=== PATIENT | female | born 1990 | race Caucasian/White ===

== ENCOUNTER → 2019-11-30 15:31 | Outpatient (CLI) | payer OTHER, SELFPAY ==
--- NOTE | ~2019-11-30 | US_ITS ---
EXAMINATION: US OB <= 14 weeks fetus DATE: 11/30/2019 15:54 INDICATION: First trimester dating TECHNIQUE: Real-time pelvic transabdominal and transvaginal ultrasound was performed. COMPARISON: None. FINDINGS: The uterus measures 13.1 x 5.7 x 7.4 cm. There is an intrauterine gestational sac. There a re two small subchronic hemorrhages which measure 1.5 x 0.7 x 1.7 cm and 1.0 x 0.8 x 0.7 cm. A yolk s ac is identified. heart motion is identified measuring 164 beats per minute (bpm) by M-mode Dop pler. The crown rump length measures 2 cm , which correlates with an estimated gestational age of 8 weeks and 4 day(s) (+/-) 5 day(s). The left ovary is not visualized however no left adnexal abnormality is seen. The right ovary measure s 2.5 x 1.7 x 2 cm. There is no free fluid in the pelvis. IMPRESSION: 1. Live intrauterine with an estimated gestational age of 8 weeks and 4 day(s) (+/-) 5 day( s) and an estimated delivery date of 07/07/2020. 2. Two small subchronic hemorrhages. Reviewed, dictated and finalized at location A. [employer]ICER IMPRESSION: 1. Live intrauterine with an estimated gestational age of 8 weeks and 4 day(s) (+/-) 5 day(s) and an estimated delivery date of 07/07/2020. 2. Two small subchronic hemorrhages.
== END ==
PROVIDERS: Visit Provider Nurse Practitioner
DX: O46.90 Antepartum hemorrhage, unspecified, unspecified trimester (principal); Z3A.00 Weeks of gestation of pregnancy not specified
CPT/HCPCS: 76801

== ENCOUNTER → 2019-12-29 09:09 | Outpatient (CLI) | payer OTHER, SELFPAY ==
--- NOTE | ~2019-12-29 | US_ITS ---
EXAMINATION: US OB limited DATE: 12/29/2019 09:29 INDICATION: Subchorionic hematoma follow-up, first trimester TECHNIQUE: Real-time ultrasound of the pelvis was performed. The interpreting radiologist was not pre sent for the study. COMPARISON: None. FINDINGS: There is a single living fetus in vertex presentation. There is an approximately 2.0 x 1.0 x 1.1 cm hypoechoic area adjacent to the left aspect of the gestational sac. No persistent hypoechoic finding is seen to the right of the gestational sac. cardiac activity and movement are n oted. heart rate is 146 beats per minute (bpm). The amniotic fluid index is subjectively normal . IMPRESSION: 1. Subchorionic hematoma adjacent to the left of the gestational sac measuring up to 2.0 cm. Reviewed, dictated and finalized at location A.
== END ==
PROVIDERS: PCP Family Medicine; Visit Provider Obstetrics & Gynecology Gynecology
DX: O36.8910 Maternal care for other specified fetal problems, first trimester, not applicable or unspecified (principal); Z3A.00 Weeks of gestation of pregnancy not specified
CPT/HCPCS: 76815

== ENCOUNTER 2020-02-07 14:59 | Outpatient (CLI) | payer OTHER, SELFPAY ==
--- NOTE | ~2020-02-07 | US_ITS ---
EXAMINATION: US OB /maternal detail DATE: 02/07/2020 16:17 INDICATION: Follow-up subchorionic hematoma and assess anatomy during second trimester pregnanc y. TECHNIQUE: Multiple obstetric sonographic images performed. FINDINGS: There is a single living fetus in variable presentation. The placenta is anterior with caudal margin 3.4 cm from the internal cervical os. Normal amniotic fluid volume. heart rate of 142 beats p er minute. The following anatomy was identified as normal: Normal situs solitus Ventricles, choroid plexus, falx and cava septum pellucidum Cerebellum and cisterna magna Nuchal fold Upper lip Spine Heart Diaphragm Stomach Kidneys Bladder 3 vessel cord and cord insertion Bilateral upper and lower extremities including hands and feet The following biometric data were obtained: BPD: 4.2 cm -> 18 weeks 5 days Head circumference: 16.7 cm -> 19 weeks 3 days Abdominal circumference: 13.6 cm -> 19 weeks 1 days Femur length: 2.7 cm -> 18 weeks 1 days These measurements are concordant. Head circumference to abdominal circumference ratio: 1.23 (normal range 1.09-1.26). Estimated weight: 254 g (+/-) 38 g. or 9 oz. (+/-) 1 oz. IMPRESSION: 1. Single living fetus with variable presentation with heart rate of 142 bpm. 2. Gestational age by ultrasound of 18 weeks 6 day(s) (+/-) 1 week 2 day(s) with ultrasound estimat ed date of delivery (LULÚ) of 07/04/2020. Estimated weight is 54th percentile by Hadlock criteria when 07/04/2020 is used as the LULÚ. Please correlate with clinical information or earlier ultrasounds for most accurate LULÚ. 3. Normal survey. Reviewed, dictated and finalized at location A. IMPRESSION: 1. Single living fetus with variable presentation with heart rate of 142 bpm. 2. Gestational age by ultrasound of 18 weeks 6 day(s) (+/-) 1 week 2 day(s) w ith ultrasound estimated date of delivery (LULÚ) of 07/04/2020. Estimated w eight is 54th percentile by Hadlock criteria when 07/04/2020 is used as the LULÚ. Please correlate with clinical information or earlier ultrasounds for most acc urate LULÚ. 3. Normal survey.
== END 2020-02-07 15:00 | disposition home or self-care (01) ==
PROVIDERS: Visit Provider Obstetrics & Gynecology Gynecology
DX: Z36.89 Encounter for other specified antenatal screening (principal); O36.8911 Maternal care for other specified fetal problems, first trimester, fetus 1; Z3A.18 18 weeks gestation of pregnancy
CPT/HCPCS: 76805

== ENCOUNTER 2020-03-11 15:19 | Outpatient (CLI) | payer OTHER, SELFPAY ==
[2020-03-11 15:45] VITALS: BP 111/65; PULSE 73
[2020-03-11 16:00] VITALS: BP 116/59; PULSE 74
[2020-03-11 16:15] VITALS: BP 106/52; PULSE 81
[2020-03-11 16:23] VITALS: BP 106/52; PULSE 85
--- NOTE | 2020-03-11 16:27 | PC.NURSE ---
Spoke with Dr. Larsen, patient to be dischraged to home. ROM plus negative.
== END 2020-03-11 16:25 | disposition home or self-care (01) ==
LOC: ANHOBOP 16:13 → ANHOBPP 16:14
PROVIDERS: Visit Provider Obstetrics & Gynecology Gynecology
DX: O42.90 Premature rupture of membranes, unspecified as to length of time between rupture and onset of labor, unspecified weeks of gestation (principal); Z3A.00 Weeks of gestation of pregnancy not specified
CPT/HCPCS: 59025; 84112; 99199

== ENCOUNTER 2020-04-14 16:10 | Outpatient (RCR) | payer OTHER, SELFPAY ==
[2020-04-16] MEDS: RHO(D) IMMUNE GLOBULIN 300 MCG SYRINGE IM (16:48)
== END 2020-07-13 23:59 | disposition home or self-care (01) ==
LOC: ANHLAB 16:10
PROVIDERS: Visit Provider Obstetrics & Gynecology Gynecology
DX: Z29.13 Encounter for prophylactic Rho(D) immune globulin (principal); O36.0990 Maternal care for other rhesus isoimmunization, unspecified trimester, not applicable or unspecified; Z3A.00 Weeks of gestation of pregnancy not specified; Z67.41 Type O blood, Rh negative
CPT/HCPCS: 36415; 85461; 90384; J2790

== ENCOUNTER 2020-05-30 16:36 | Outpatient (RCR) | payer OTHER, SELFPAY ==
--- NOTE | ~2020-05-30 | US_ITS ---
EXAMINATION: US OB BPP wo non-stress EXAM DATE: 05/30/2020 17:35 INDICATION: Nonreactive stress test. 3rd trimester. TECHNIQUE: Pelvic obstetrical transabdominal sonogram was performed by a technologist. There are mu ltiple grayscale and Doppler images available for interpretation. FINDINGS: There is a single fetus identified in vertex presentation with a heart rate of 134 beats pe r minute. The placenta is located in the anterior position. There is no sonographic evidence of retr oplacental hemorrhage identified. There is subjectively expected amount of amniotic fluid. Cervical canal length is 3.6 cm without funneling. BIOPHYSICAL PROFILE (performed by the technologist) breathing (30 sec sustained breathing in 30 minutes): 2 out of 2 movement (3 gross body movements in 30 minutes): 2 out of 2 tone (one episode of ethpekk-asehejpqz-tsacnht limb movement): 2 out of 2 Amniotic fluid pocket (2 cm): 2 out of 2 Total score: 8 out of 8 IMPRESSION: 1. Single fetus with heart rate of 137 bpm. 2. Normal biophysical profile score of 8 out of 8. Reviewed, dictated and finalized at location A.
[2020-05-30 17:43] VITALS: BP 118/71; PULSE 65
== END 2020-07-15 08:07 | disposition home or self-care (01) ==
LOC: ANHOBOP 16:36
PROVIDERS: PCP Family Medicine; Visit Provider Obstetrics & Gynecology Gynecology
DX: O24.419 Gestational diabetes mellitus in pregnancy, unspecified control (principal); Z3A.34 34 weeks gestation of pregnancy
CPT/HCPCS: 59025; 76819

== ENCOUNTER 2020-07-02 09:02 | Inpatient (IN) | payer OTHER, SELFPAY ==
[2020-07-02] VITALS (50 sets, daily range): BP systolic 68–112; BP diastolic 47–79; PULSE 51–135; RESP 16–18; TEMP 36.6–37.1; O2SAT 98–100
[2020-07-02 09:32] LABS: Basophils Percent Auto 0.1 % (0.2-1.2); Eosinophils Percent Auto 0.4 % (0-4.4); Hematocrit 41.2 % (37.0-47.0); Hemoglobin 14.6 g/dL (12.0-15.0); Immature Granulocyte Absolute 0.02 K/mm3 (0.00-0.031); Immature Granulocyte Percent A 0.2 % (0-0.5); Lymphocytes Absolute Auto 1.67 K/mm3 (0.9-3.2); Lymphocytes Percent Auto 18.7 % (18.3-44.2); Mean Corpuscular HGB Conc 35.4 g/dl (32-36); Mean Corpuscular Hemoglobin 33.6 pg (26-34); Mean Corpuscular Volume 94.9 fl (80-100); Mean Platelet Volume 11.8 fl (7.4-10.4); Monocytes Absolute Auto 0.5 K/mm3 (0.1-0.6); Monocytes Percent Auto 5.5 % (2.6-8.5); Neutrophils Absolute Auto 6.7 K/mm3 (1.3-6.7); Neutrophils Percent Auto 75.1 % (45.5-73.1); Platelet Count Result 166 k/mm3 (150-375); Red Blood Count 4.34 M/mm3 (4.2-5.4); Red Cell Distribution Width 12.6 % (11.5-14.5); White Blood Count 8.9 K/mm3 (4.5-10.0)
[2020-07-02] MEDS: ONDANSETRON INJ 4 MG/2 ML VIAL IV PUSH (09:34)
[2020-07-02] MEDS: LACTATED RINGERS 1,000 ML 125 ML IV CONT (09:35)
[2020-07-02] MEDS: OXYTOCIN 30 UNITS/NS 500 ML 30 UNITS/500 ML BAG IV CONT (09:35)
--- NOTE | 2020-07-02 09:41 | LDADM ---
This patient, Ciera Reyes, was admitted to Labor/Delivery/Recovery 105 on 07/02/20 at 09:02. Plans for labor, pain management and were discussed with patient. Patient/family oriented to hospital policies and general routines including ID bracelet, bed and alarms, visiting hours, pain management, procedures, bathroom and other care routines, personal items, smoking policy, room service/diet and guest tray routines, infant security routines, and visiting hours. Patient/Family are encouraged to report perceived risks to care and to ask questions if they do not understand what they are told or what they should do. See OBIX for further documentation.
[2020-07-02 11:24] LABS: Glucose Point of Care 81 (65-105)
--- NOTE | 2020-07-02 11:49 | WPDANESEPP ---
Anes - Eval Pre Procedure Procedure: Labor Epidural Date/Time: 07/02/20 11:49 Surgeon: Libby Preop Diagnosis: Labor Pain Pre Op Diagnosis: IOL Patient Data Age: 30 Gender: F Height: Weight: Last Vital Signs Temp 36.8 C 07/02/20 11:30 Pulse 93 07/02/20 11:47 BP 68/51 L 07/02/20 11:47 Pulse Ox 98 07/02/20 11:47 Allergies Allergy/AdvReac Type Severity Reaction Status Date / Time No Known Allergies Allergy Unverified 10/27/17 12:28 Home Medications Medication Instructions Recorded Confirmed Type PNV cmb#95-ferrous fumarate-FA 1 tablet PO DAILY 06/11/20 07/02/20 History [] aspirin 81 mg PO DAILY 06/11/20 07/02/20 History ergocalciferol (vitamin D2) See Rx Instructions .ROUTE .COMPLEX 06/11/20 07/02/20 History [Vitamin D2] insulin NPH isoph U-100 human 12 unit SUBCUT HS 06/11/20 07/02/20 History [Humulin N NPH U-100 Insulin] Laboratory Tests 07/02/20 07/02/20 07/02/20 09:18 09:18 09:18 WBC 8.9 K/mm3 K/mm3 (4.5-10.0) RBC 4.34 M/mm3 M/mm3 (4.2-5.4) Hgb 14.6 g/dL g/dL (12.0-15.0) Hct 41.2 % % (37.0-47.0) MCV 94.9 fl fl (80-100) MCH 33.6 pg pg (26-34) MCHC 35.4 g/dl g/dl (32-36) RDW 12.6 % % (11.5-14.5) Plt Count 166 k/mm3 k/mm3 (150-375) MPV 11.8 fl H fl (7.4-10.4) Immature Gran % (Auto) 0.2 % % (0-0.5) Neut % (Auto) 75.1 % H % (45.5-73.1) Lymph % (Auto) 18.7 % % (18.3-44.2) [place] % (Auto) 5.5 % % (2.6-8.5) Eos % (Auto) 0.4 % % (0-4.4) Baso % (Auto) 0.1 % L % (0.2-1.2) Lymph # (Auto) 1.67 K/mm3 K/mm3 (0.9-3.2) [place] # (Auto) 0.5 K/mm3 K/mm3 (0.1-0.6) Eos # (Auto) 0.0 K/mm3 K/mm3 (0-0.3) Baso # (Auto) 0.0 K/mm3 K/mm3 (0.0-0.1) Abs Immat Gran (auto) 0.02 K/mm3 K/mm3 (0.00-0.031) Absolute Neuts (auto) 6.7 K/mm3 K/mm3 (1.3-6.7) Absolute Nucleated RBC 0.0 K/mm3 K/mm3 (0.0-0.012) Nucleated RBC % 0.0 % % (0.0-0.2) POC Capillary Glucose RPR Pending Blood Type O Negative Antibody Screen Negative 07/02/20 09:38 WBC RBC Hgb Hct MCV MCH MCHC RDW Plt Count MPV Immature Gran % (Auto) Neut % (Auto) Lymph % (Auto) [place] % (Auto) Eos % (Auto) Baso % (Auto) Lymph # (Auto) [place] # (Auto) Eos # (Auto) Baso # (Auto) Abs Immat Gran (auto) Absolute Neuts (auto) Absolute Nucleated RBC Nucleated RBC % POC Capillary Glucose 81 mg/dl mg/dl (65-105) RPR Blood Type Antibody Screen : gestational age (07/09/20) Patient hx anesthesia problems: none Family hx anesthesia problems: none [facility] Family History Family History Mother Heart disease Social History Social History Smoking status: Never smoker Substance use: never Gender identity (if verbalized by the patient): Female Spiritual care concerns: No Exam Day of Procedure 07/02/20 11:49 Patient weight: normal Heart: regular rate and rhythm Lungs: normal air movement Airway: Mallampati scale class II Neurological: alert and oriented
--- NOTE | 2020-07-02 12:12 | WPDOBADMIT ---
Obstetrics - Admit Note Admission Note: AROm meconium /-2 vertex record reviewed. No pertinent additions to the history and/or any subsequent changes in the physical findings that are not consistent with the expected course of the were found. Additions to the history and/or subsequent changes in the physical findings follow. None.
[2020-07-02 13:30] LABS: Glucose Point of Care 60 (65-105)
--- NOTE | 2020-07-02 14:13 | PM.OBPRVD ---
OB - Delivery Note Procedure Delivery date: 07/02/20 Procedure: events: Gestational Diabetes (GDMA1) and Labor Induction Intrapartal events: None Induction method: per pitocin protocol Delivery monitor: external FHT and external uterine Route of delivery: Laceration description: Vaginal - 1st Degree Delivery repair: vicryl (3-0 vicryl ) Specimen: No Estimated blood loss (mL): 100 Anesthesia type: Epidural Disposition: floor Baby Date of : 07/02/20 Weeks of gestation at delivery: 39 Infant gender: Male presentation: vertex Placenta delivery description: Spontaneous cord vessel description: 3 Vessels score one minute: 9 score five minutes: 9
--- NOTE | 2020-07-02 14:15 | PM.OBDSVD ---
DS: Admitting Diagnosis Admitting Diagnosis Admitting Diagnosis: IOL GDMA2 39 wks DS: Discharge Diagnosis Discharge Diagnosis (1) 39 weeks gestation of : Code(s): Z3A.39 - 39 weeks gestation of Status: Acute (2) (normal spontaneous vaginal delivery): Code(s): O80 - Encounter for full-term uncomplicated delivery Status: Acute (3) GDM, class A2: Code(s): O24.419 - Gestational diabetes mellitus in , unspecified control Status: Acute OB - DS: Summary OB Procedures : NST and Ultrasound OB Procedures Intrapartum: Spontaneous Vag Delivery OB Procedures: : None Peripartum Data Delivery Method: Natural Vaginal Laceration description: Vaginal - 1st Degree complications: none Status at Discharge Functional status at discharge: independent ambulation Overall status at discharge: patient is progressing back to baseline Time Spent with Patient Time attestation: Total time spent providing and/or coordinating discharge services: DS: Data Data Completed and Pending Labs on day of discharge: Labs from last 24 hours 07/02/20 07/02/20 07/02/20 13:28 09:38 09:18 WBC RBC Hgb Hct MCV MCH MCHC RDW Plt Count MPV Immature Gran % (Auto) Neut % (Auto) Lymph % (Auto) Yell % (Auto) Eos % (Auto) Baso % (Auto) Lymph # (Auto) Yell # (Auto) Eos # (Auto) Baso # (Auto) Abs Immat Gran (auto) Absolute Neuts (auto) Absolute Nucleated RBC Nucleated RBC % POC Capillary Glucose 60 L 81 RPR Blood Type O Negative Antibody Screen Negative 07/02/20 07/02/20 09:18 09:18 WBC 8.9 RBC 4.34 Hgb 14.6 Hct 41.2 MCV 94.9 MCH 33.6 MCHC 35.4 RDW 12.6 Plt Count 166 MPV 11.8 H Immature Gran % (Auto) 0.2 Neut % (Auto) 75.1 H Lymph % (Auto) 18.7 Yell % (Auto) 5.5 Eos % (Auto) 0.4 Baso % (Auto) 0.1 L Lymph # (Auto) 1.67 Yell # (Auto) 0.5 Eos # (Auto) 0.0 Baso # (Auto) 0.0 Abs Immat Gran (auto) 0.02 Absolute Neuts (auto) 6.7 Absolute Nucleated RBC 0.0 Nucleated RBC % 0.0 POC Capillary Glucose RPR Pending Blood Type Antibody Screen Discharge Plan Discharge Attending physician on discharge: Serenity Souza Discharging Clinician: Serenity Souza Anticipated Discharge Date/Time: 07/04/20 14:17 Patient Disposition: Home, Self-Care Activity: pelvic rest Diet: regular Discharge Instructions: Education: Mom and Baby Guide and Preeclampsia Handout Given to: Mother Follow-Up: Call your delivering provider's office for an appointment to be seen in: 6 Weeks Mom and baby should come to the [facility] for the follow-up appointment. Appointment Date/Time: July 04, 2020 at 8:00 am What to expect at your follow-up visit: Physical Assessment Call [phone] if you are unable to keep your appointment time. BREAST CARE: * Wear a snug supportive bra. * For engorgement discomfort: Breast Feeding: * Apply warm moist washcloths * Express milk as needed to relieve engorgement * Wear loose clothing * For sore nipples: * Identify correct latch-on * Apply warm moist washcloths before and after nursing * Air dry nipples after nursing * May apply Lansinoh cream to nipples EPISIOTOMY/PERINEAL CARE: * Until bleeding stops, use your marcello bottle after urinating * Change your pad frequently throughout the day * You may take sitz baths several times a day (fill your bathtub with warm water and soak for 20 minutes.) Do NOT bathe in the water * No tub baths until seen by your physician - You may shower ACTIVITY: * Rest as much as possible. * Do not exercise or lift anything heavier than your baby (such as laundry or other children.) * Avoid stairs or driving as much as pos
[2020-07-02] MEDS: OXYTOCIN 30 UNITS/NS 500 ML 30 UNITS/500 ML BAG 125 UNITS IV CONT (14:41)
--- NOTE | 2020-07-02 16:45 | PC.NURSE ---
Patient transferred to post room #286 per wheelchair from labor and delivery. Support person present. Oriented to unit, room, information board, rooming in, admission packet and security measures. Patient verbalizes understanding.
[2020-07-03 05:47] LABS: Hematocrit 34.3 % (37.0-47.0); Hemoglobin 12.1 g/dL (12.0-15.0)
[2020-07-03] MEDS: MULTIVIT/MIN/PREN/FOL AC/IRON TABLET 1 TAB PO (07:43)
[2020-07-03 07:45] VITALS: BP 108/68; PULSE 51; RESP 18; TEMP 37.1; O2SAT 97
[2020-07-03] MEDS: IBUPROFEN 600 MG TABLET PO (07:45)
--- NOTE | 2020-07-03 10:45 | WPDANLDPN2 ---
Anes-Prog Note L&D Date/Time: 07/03/20 10:45 Comfortable throughout: labor and delivery Neuraxial method: epidural Epidural/Spinal procedure site: clean & non-tender Neuro status: Neuro function grossly intact. Cardiovascular status: normal Respiratory status: normal Airway patency: baseline Mental status: baseline Post-Op hydration status: normal Vital Signs: Last Vital Signs Temp 37.1 C 07/03/20 07:45 Pulse 51 L 07/03/20 07:45 Resp 18 07/03/20 07:45 BP 108/68 07/03/20 07:45 Pulse Ox 97 07/03/20 07:45 Pain score (VAS): 10/26 Post-procedural complaints: none Patient feedback: Patient satisfied with anesthetic care.
[2020-07-03 11:14] LABS: Rapid Plasma Reagin Non-Reactive (NonReactive)
--- NOTE | 2020-07-03 17:00 | PC.NURSE ---
Patient was given the opportunity to view the discharge video Mother & Baby Care, The First Two Weeks and to ask questions. Patient declined viewing the video and has been given the mother/baby guide for home reference.
--- NOTE | 2020-07-03 17:11 | PM.OBPNVD ---
OB - PN: Subj Subjective Date/time seen: 07/03/20 17:11 doing well desires home today OB - PN: Obj Data Labs CBC & Chem 7: 07/03/20 04:16 Labs: Laboratory Results - last 24 hr 07/02/20 07/03/20 09:18 04:16 Hgb 12.1 Hct 34.3 L RPR Non-reactive OB - PN A/P Assessment and Plan (1) (normal spontaneous vaginal delivery): Code(s): O80 - Encounter for full-term uncomplicated delivery Status: Acute Assessment and Plan: d/c home f/u is 6 weeks pp care. (2) 39 weeks gestation of : Code(s): Z3A.39 - 39 weeks gestation of Status: Acute Time Spent With Patient Time: Total time spent is greater than 50% in coordination of care (as documented) at patient's floor/unit and/or counseling patient: Exam GI: Other: ff below umbilicus
--- NOTE | 2020-07-03 17:11 | PC.NURSE ---
Observed mother is able to independently latch infant with appropriate positioning/alignment. She denies any nipple discomfort, is feeding as required and waking infant to feed if needed. nursed eagerly, with steady draws and frequent swallowing noted. Reviewed signs of a correct latch, effective nursing and suck swallow ratio. was able to maintain latch without discomfort to mother. Nipple care reviewed. Reviewed feeding cues, frequencies, duration of feedings, feeding elimination flow sheet, and signs of adequate intake. Mother wishes to be discharged today. Mother is feeding as required and waking to feed if needed. Infant has had at least 8 effective feedings in the past 24 hours, and is currently meeting outcomes for weight, output, jaundice and feeding frequencies. Mother states she feels confident to continue effective at home. Reviewed transition to breast milk, signs of adequate intake, and engorgement/relief. Instructed to call ICP if intake/output less than required. Reviewed regular medications mother is taking. Information provided per Trudy. Reviewed community resources on the [facility] website and in the Mom/Baby guide. Information on outpatient services provided. Mother has no further questions at this time.
[2020-07-04 08:24] VITALS: BP 111/67; PULSE 62; RESP 20; O2SAT 99
== END 2020-07-03 17:22 | disposition home or self-care (01) | DRG 807 ==
LOC: ANHLDR 14:17 → ANHOB2 07-03 14:28 → ANHLDR 07-04 11:00 → ANHOB2 07-04 11:00
PROVIDERS: Admitting Provider Obstetrics & Gynecology Gynecology; PCP Family Medicine; Visit Provider Obstetrics & Gynecology
DX: O24.429 Gestational diabetes mellitus in childbirth, unspecified control (principal); Z37.0 Single live birth; Z3A.39 39 weeks gestation of pregnancy; O70.0 First degree perineal laceration during delivery; O77.0 Labor and delivery complicated by meconium in amniotic fluid
CPT/HCPCS: 36415; 85014; 85018; 85025; 86592; 86850; 86900; 86901; A9270; J2405; J2590; J2795; J7120

== ENCOUNTER → 2022-08-30 14:22 | Outpatient (CLI) | payer OTHER, SELFPAY ==
--- NOTE | ~2022-08-30 | MMUS_ITS ---
EXAMINATION: MM diagnostic freddy LT w sofya, US breast LT limited HISTORY: Palpable left breast abnormality. TECHNIQUE: Additional 3-D tomosynthesis images of left were performed and synthetic 2-D images were g enerated. CAD analysis was submitted and interpreted. High resolution limited left breast ultrasound was performed. COMPARISON: None BREAST PARENCHYMAL COMPOSITION: The breasts are extremely dense, which lowers the sensitivity of mamm ography FINDINGS: MAMMOGRAPHIC FINDINGS: There are no suspicious masses, calcifications or architectural distortion in the left breast to sugg est malignancy. ULTRASOUND: Limited left breast ultrasound: Normal heterogeneous echotexture without focal solid or cystic mass. IMPRESSION: 1. No evidence for malignancy in the left breast. 2. Recommend follow-up clinical management for palpable left breast abnormality. Recommend follow-up bilateral mammogram at age 40. BI-RADS Category 1: Negative Reviewed, dictated and finalized at location A. ERS COMPENSATION ADJUSTER IMPRESSION: 1. No evidence for malignancy in the left breast. 2. Recommend follow-up clinical management for palpable left breast abnormality . Recommend follow-up bilateral mammogram at age 40. BI-RADS Category 1: Negative
== END ==
PROVIDERS: PCP Obstetrics & Gynecology Gynecology; Visit Provider Obstetrics & Gynecology Gynecology
DX: N63.20 Unspecified lump in the left breast, unspecified quadrant (principal)
CPT/HCPCS: 76642; 77061; 77065; G0279